=== PATIENT | female | born 1940 | race Caucasian/White ===

== ENCOUNTER 2016-12-31 14:52 | Emergency (ER) | payer MEDICARE ==
[~2016-12-31] VITALS: Ht 170.2 cm; Wt 100.0 kg
[2016-12-31 16:27] LABS: BASOPHILS % (AUTO) 0 % (0-2); EOSINOPHILS # (AUTO) 0.1 10^3uL; EOSINOPHILS % (AUTO) 1 % (0-4); LYMPHOCYTES # (AUTO) 0.8 X10^3; MEAN CORPUSCULAR HEMOGLOBIN 30.6 PG (26.0-34.0); MEAN CORPUSCULAR HGB CONC 34.5 g/dL (31.0-37.0); MEAN CORPUSCULAR VOLUME 89 FL (80-100); MEAN PLATELET VOLUME 9.7 FL (6.0-9.5); MONOCYTES # (AUTO) 0.9 X10^3; MONOCYTES % (AUTO) 9 % (3-11); NEUTROPHILS # (AUTO) 8.6 X10^3; NEUTROPHILS % (AUTO) 82 % (51-67); PLATELET COUNT 287 10^3uL (150-450); WHITE BLOOD COUNT 10.49 10^3uL (4.0-11.0)
[2016-12-31 16:37] LABS: ALBUMIN 4.5 g/dL (3.4-5.0); ANION GAP 17.3 MEQ/L (3-15); CALCULATED IONIZED CALCIUM 4.1 mg/dL (3.8-4.6); TOTAL PROTEIN 7.6 g/dL (6.4-8.5)
[2016-12-31 17:50] VITALS: BP 114/41
== END 2016-12-31 17:08 | disposition home or self-care (01) ==
LOC: ED 14:56
DX: R55 Syncope and collapse (principal)
CPT/HCPCS: 36415; 80053; 85025; 93005; 99282; 99283

== ENCOUNTER → 2017-01-07 | Outpatient (CLI) | payer MEDICARE | LOC: RT 08:58 | PROVIDERS: ATTEND Internal Medicine Cardiovascular Disease | DX: R55 Syncope and collapse (principal) | CPT/HCPCS: 93226 ==